=== PATIENT | female | born 1960 | race Caucasian/White ===

== ENCOUNTER → 2023-01-12 | Outpatient (CLI) | payer MEDICARE ==
[2023-01-12 12:22] VITALS: BP 151/83; PULSE 75; RESP 16; TEMP 98.1
--- NOTE | 2023-01-12 14:22 | P.PAINPG ---
PQRS Measure Charge Sheet Comment: HISTORY OF PRESENT ILLNESS: A 62 yr old female as a referral from Dr Chavez presents today w severe and chronic LBP x 2 yrs secondary to DDD, spondylosis and facet arthropathy without myelopathy for evaluation. Pt states pain level is provoked at 9 /10 in intensity, constant, localized in the mid to lower lumbar spine, sharp in character w shooting pain towards the BL feet. Pain is provoked by over activity. Pain is alleviated by PT x 6 wks in Sep 2022, heat, ice, medications ([place] 10/3225mg #90, Neurontin), topical, use of TENS unit, lumbar support brace, use of a cane for ambulatory assistance, repositioning and rest. Oswestry axial pain score at 27. PMH: OA, HTN, GERD, Hyperlipidemia, Seasonal Allergies, Anxiety, TMJ PSH: Tubal Ligation (1985), Partial Hysterectomy (1990), Bladder Suspension (1990), Cholecystectomy (2007), Appendectomy (2009), L Shoulder Surgery (2002), Cystocoele (2018) SH: +Tobacco use, No ETOH abuse, No illicit drug use FH: Daughter- Bipolar Disorder. Son- HTN All: See list Meds: See list REVIEW OF ORGAN SYSTEMS: CONSTITUTIONAL: No fevers or chills. No recent weight loss. NEUROLOGICAL: + numbness and tingling along the distal extremities. No seizure disorders or headaches. MUSCULOSKELETAL: + pain PSYCHIATRIC: Denies current depression or suicidal thoughts. Physical Examinations : Constitutional : Cooperative , not in acute distress . Neurologic : Cranial nerve II to XII intact. No focal neurological deficits. Psychiatric : alert & oriented x 3. Matching mood & appropriate affect. Judgment & insight intact. Musculoskeletal : Cervical Spine Motor strength in the deltoid and biceps: Normal right side. Normal Left side Motor strength biceps and the wrist extensors: Normal right side . Normal left side Motor strength in the triceps muscle: Normal right side. Normal left side Deep tendon reflexes: Normal at the biceps. Normal at Brachioradialis. Normal at triceps Vertebral body tenderness to deep palpation over Cervical facet loading test: positive bilaterally Spurling test: positive bilaterally Neck distraction test: positive bilaterally Camron sign: positive bilaterally Lumbar spine Motor strength lower extremities ,thigh and legs 5/5 Right side , 5/5 Left side Deep tendon reflexes : Normal Knee Jerk. Normal Ankle Jerk Vertebral body tenderness over L5 De Luna Test positive Lumbar facet Loading Test: positive Right / positive Left Range of motion of the lumbar spine Flexion 30 degrees, extension 10 degrees Straight Leg Raise test: Left/ Right positive at 30 degrees Shameka test: positive right / positive left. Severe tenderness over the Sacroiliac joint on the Right / Left sides Gaenslen test: positive bilaterally Seated flexion test: positive bilaterally. Sacral spine : Severe tenderness over the Sacroiliac joint: right side / left side Range of motion: Flexion of the lumbar spine <60 degrees Range of motion: Extension of the lumbar spine <20 degrees Gaenslen's Test positive Parrish's Test positive Shameka test: positive right side / left side Thigh Thrust Test Sacral Thrust Test Imaging: MRI noncontrast of the lumbar spine from 06/05/22 reviewed Assessment/ Plan : Lumbar DDD Recommendation of DOYLE L5-S1 #1. May need a series of injections for optimal pain relief. Risks, benefits of procedure discussed and patient verbalized understanding. Admits to anti- coagulant use or medical history of diabetes. Protocol for discontinuation/ continuation of medications mya procedure discussed. Minimal anesthesia provided, if clinically indicated, consisting of Versed and Fentanyl. [place] 10/325mg #90 w 1 RF. Use, side effects, adverse reactions and safe storage discussed. Opiate/ narcotic agreement signed 01/12/23 Pt acknowledged understanding. All questions answered. I have spent greater than 30 minutes on patient care today. Dr Michel was available by phone for the evaluation of this patient. The time was used to review the medical records including relevant urine studies and Prescription history (MAPs), review of the available imaging, evaluation and examination of the patient, coordination of care with the medical staff and if applicable referring physicians, as well as creation of the medical record Controlled Substance Measures - Controlled Substance Measures Is patient prescribed a controlled substance at discharge?: Yes When asked, does pt state using other controlled substances?: Yes If prescribed controlled substance>3 days was MAPS reviewed?: Yes If Rx opioid, was Start Talking consent form obtained?: Yes Was information provided regarding opioid addiction?: Yes
== END ==
LOC: PNWHC3 10:35
PROVIDERS: ATTEND Specialist
DX: G89.4 Chronic pain syndrome (principal); M54.42 Lumbago with sciatica, left side; M51.36 Other intervertebral disc degeneration, lumbar region; M19.90 Unspecified osteoarthritis, unspecified site; K21.9 Gastro-esophageal reflux disease without esophagitis; E78.5 Hyperlipidemia, unspecified; F41.9 Anxiety disorder, unspecified; M26.609 Unspecified temporomandibular joint disorder, unspecified side; F17.200 Nicotine dependence, unspecified, uncomplicated; Z88.8 Allergy status to other drugs, medicaments and biological substances
CPT/HCPCS: 99202

== ENCOUNTER → 2023-03-30 | Outpatient (CLI) | payer MEDICARE ==
[2023-03-30 11:08] VITALS: BP 120/76; PULSE 65; RESP 16
--- NOTE | 2023-03-30 14:00 | P.PAINPG ---
PQRS Measure Charge Sheet Comment: HISTORY OF PRESENT ILLNESS: A 62 yr old female as a referral from Dr Chavez presents today w severe and chronic LBP x 2 yrs secondary to DDD, spondylosis and facet arthropathy without myelopathy for evaluation. She was recommended to have an DOYLE L5-S1 in her Dec 2022 visit along w narcotic medications, but pt has not followed through w DOYLE. She did not return calls confirming her DOYLE appt. Pt states pain level is provoked at 9 /10 in intensity, constant, localized in the mid to lower lumbar spine, predominantly axial, sharp in character w occasional shooting pain towards the BL feet. Pain is provoked by over activity. Pain is alleviated by PT x 6 wks in Sep 2022, heat, ice, medications ([place] 10/325mg #90, Neurontin), topical, use of TENS unit, lumbar support brace, use of a cane for ambulatory assistance, repositioning and rest. Oswestry axial pain score at 27. PMH: OA, HTN, GERD, Hyperlipidemia, Seasonal Allergies, Anxiety, TMJ PSH: Tubal Ligation (1985), Partial Hysterectomy (1990), Bladder Suspension (1990), Cholecystectomy (2007), Appendectomy (2009), L Shoulder Surgery (2002), Cystocoele (2018) SH: +Tobacco use, No ETOH abuse, No illicit drug use FH: Daughter- Bipolar Disorder. Son- HTN All: See list Meds: See list REVIEW OF ORGAN SYSTEMS: CONSTITUTIONAL: No fevers or chills. No recent weight loss. NEUROLOGICAL: + numbness and tingling along the distal extremities. No seizure disorders or headaches. MUSCULOSKELETAL: + pain PSYCHIATRIC: Denies current depression or suicidal thoughts. Physical Examinations : Constitutional : Cooperative , not in acute distress . Neurologic : Cranial nerve II to XII intact. No focal neurological deficits. Psychiatric : alert & oriented x 3. Matching mood & appropriate affect. Judgment & insight intact. Musculoskeletal : Cervical Spine Motor strength in the deltoid and biceps: Normal right side. Normal Left side Motor strength biceps and the wrist extensors: Normal right side . Normal left side Motor strength in the triceps muscle: Normal right side. Normal left side Deep tendon reflexes: Normal at the biceps. Normal at Brachioradialis. Normal at triceps Vertebral body tenderness to deep palpation over Cervical facet loading test: positive bilaterally Spurling test: positive bilaterally Neck distraction test: positive bilaterally Camron sign: positive bilaterally Lumbar spine Motor strength lower extremities ,thigh and legs 5/5 Right side , 5/5 Left side Deep tendon reflexes : Normal Knee Jerk. Normal Ankle Jerk Vertebral body tenderness over L5 De Luna Test positive Lumbar facet Loading Test: positive Right / positive Left Range of motion of the lumbar spine Flexion 30 degrees, extension 10 degrees Straight Leg Raise test: Left/ Right positive at 30 degrees Shameka test: positive right / positive left. Severe tenderness over the Sacroiliac joint on the Right / Left sides Gaenslen test: positive bilaterally Seated flexion test: positive bilaterally. Sacral spine : Severe tenderness over the Sacroiliac joint: right side / left side Range of motion: Flexion of the lumbar spine <60 degrees Range of motion: Extension of the lumbar spine <20 degrees Gaenslen's Test positive Parrish's Test positive Shameka test: positive right side / left side Thigh Thrust Test Sacral Thrust Test Imaging: MRI noncontrast of the lumbar spine from 06/05/22 reviewed Assessment/ Plan : Lumbar DDD Recommendation of DOYLE L5-S1 #1 scheduled 04/07/23 at 9:30 am. Pt notified and paperwork provided. May need a series of injections for optimal pain relief. Risks, benefits of procedure discussed and patient verbalized understanding. Admits to anti- coagulant use or medical history of diabetes. Protocol for discontinuation/ continuation of medications mya procedure discussed. [place] 10/325mg #90. Use, side effects, adverse reactions and safe storage discussed. Opiate/ narcotic agreement signed 01/12/23. UDS collected 03/30/23. Pt acknowledged understanding. All questions answered. I have spent greater than 30 minutes on patient care today. Dr Michel was available by phone for the evaluation of this patient. The time was used to review the medical records including relevant urine studies and Prescription history (MAPs), review of the available imaging, evaluation and examination of the patient, coordination of care with the medical staff and if applicable referring physicians, as well as creation of the medical record Home Medications: Ambulatory Orders HYDROcodone/APAP 10-325MG [[place] 10-325] 1 tab PO Q8HR PRN 30 Days #90 tab 01/12/23 HYDROcodone/APAP 10-325MG [[place] 10-325] 1 tab PO Q8HR PRN 30 Days #90 tab 10/23/23 Controlled Substance Measures - Controlled Substance Measures Is patient prescribed a controlled substance at discharge?: Yes When asked, does pt state using other controlled substances?: Yes If prescribed controlled substance>3 days was MAPS reviewed?: Yes
== END ==
LOC: PNWHC3 10:26
PROVIDERS: ATTEND Specialist
DX: M51.36 Other intervertebral disc degeneration, lumbar region (principal); Z88.3 Allergy status to other anti-infective agents
CPT/HCPCS: 80307; G0463; 99212

== ENCOUNTER → 2023-05-14 | Outpatient (CLI) | payer MEDICARE ==
[2023-05-14 12:12] VITALS: BP 137/72; PULSE 67; RESP 16; TEMP 98.1
--- NOTE | 2023-05-14 14:39 | P.PAINPG ---
PQRS Measure Charge Sheet Comment: HISTORY OF PRESENT ILLNESS: A 62 yr old female presents today w severe and chronic LBP x 2 yrs secondary to DDD, spondylosis and facet arthropathy without myelopathy for evaluation. She was recommended to have an DOYLE L5-S1 in her Dec 2022 visit along w narcotic medications, but pt has not followed through w DOYLE by cancelling/No-Show for at least 4 OR appts within the Mar-Apr 2023 period. Previously she did not return calls confirming her [facility]YLE appt which also caused disruptions in OR scheduling. Pt states pain level is provoked at 9 /10 in intensity, constant, localized in the mid to lower lumbar spine, predominantly axial, sharp in character w occasional shooting pain towards the BL feet. Pain is provoked by over activity. Pain is alleviated by PT x 6 wks in Sep 2022, heat, ice, medications ([place] 10/325mg #90, Neurontin), topical, use of TENS unit, lumbar support brace, use of a cane for ambulatory assistance, repositioning and rest. Oswestry axial pain score at 27. Interventional procedures include : NONE. Pt cancelled/no-showed [facility] appt on 04/07/23, 04/14/23, 04/16/23 for "transportation issues" and 05/01/23 appt for "illness" yet pt appears min ahead of schedule for medication refill appt. This has created a huge disruption with the OR scheduling dept. She has a narcotic agreement w Dr Kendrick for Gabapentin and Alprazolam and has been instructed to follow up Dr Kendrick for treatment options. Medications include [place] 10/325mg #90, Neurontin REVIEW OF ORGAN SYSTEMS: CONSTITUTIONAL: No fevers or chills. No recent weight loss. NEUROLOGICAL: + numbness and tingling along the distal extremities. No seizure disorders or headaches. MUSCULOSKELETAL: + pain PSYCHIATRIC: Denies current depression or suicidal thoughts. Physical Examinations : Constitutional : Cooperative , not in acute distress . Neurologic : Cranial nerve II to XII intact. No focal neurological deficits. Psychiatric : alert & oriented x 3. Matching mood & appropriate affect. Judgment & insight intact. Musculoskeletal : Cervical Spine Motor strength in the deltoid and biceps: Normal right side. Normal Left side Motor strength biceps and the wrist extensors: Normal right side . Normal left side Motor strength in the triceps muscle: Normal right side. Normal left side Deep tendon reflexes: Normal at the biceps. Normal at Brachioradialis. Normal at triceps Vertebral body tenderness to deep palpation over Cervical facet loading test: positive bilaterally Spurling test: positive bilaterally Neck distraction test: positive bilaterally Camron sign: positive bilaterally Lumbar spine Motor strength lower extremities ,thigh and legs 5/5 Right side , 5/5 Left side Deep tendon reflexes : Normal Knee Jerk. Normal Ankle Jerk Vertebral body tenderness over L5 De Luna Test positive Lumbar facet Loading Test: positive Right / positive Left Range of motion of the lumbar spine Flexion 30 degrees, extension 10 degrees Straight Leg Raise test: Left/ Right positive at 30 degrees Shameka test: positive right / positive left. Severe tenderness over the Sacroiliac joint on the Right / Left sides Gaenslen test: positive bilaterally Seated flexion test: positive bilaterally. Sacral spine : Severe tenderness over the Sacroiliac joint: right side / left side Range of motion: Flexion of the lumbar spine <60 degrees Range of motion: Extension of the lumbar spine <20 degrees Gaenslen's Test positive Parrish's Test positive Shameka test: positive right side / left side Thigh Thrust Test Sacral Thrust Test Imaging: MRI noncontrast of the lumbar spine from 06/05/22 reviewed Assessment/ Plan : Lumbar DDD One month fill and discharge paperwork filled out for written notification to pt and Dr Kendrick. Discharged from clinic for multiple missed appts, not following treatment guidelines and disruption of practice. [place] 10/325mg #90. Use, side effects, adverse reactions and safe storage discussed. Opiate/ narcotic agreement signed 01/12/23. UDS fr 03/30/23 reviewed and consistent. Pt acknowledged understanding. All questions answered. I have spent greater than 30 minutes on patient care today. Dr Michel was available by phone for the evaluation of this patient. The time was used to review the medical records including relevant urine studies and Prescription history (MAPs), review of the available imaging, evaluation and examination of the patient, coordination of care with the medical staff and if applicable referring physicians, as well as creation of the medical record PQRS Narrative: Hx Alcohol Use (MH) No Home Medications: Ambulatory Orders HYDROcodone/APAP 10-325MG [[place] 10-325] 1 tab PO Q8HR PRN 30 Days #90 tab 03/30/23 ALPRAZolam [Xanax] 0.5 mg PO BID 04/13/23 Aspirin EC [Ecotrin] 325 mg PO DAILY 04/13/23 Atorvastatin Calcium 10 mg PO DAILY 04/13/23 Cetirizine HCl 10 mg PO DAILY 04/13/23 Cyclobenzaprine HCl 10 mg PO TID 04/13/23 Desvenlafaxine Succinate [Desvenlafaxine Succinate ER] 50 mg PO DAILY 04/13/23 Esomeprazole Magnesium [NexIUM] 40 mg PO DAILY 04/13/23 Fluticasone Nasal [place] [Flonase Nasal [place]] 2 spray EA NOSTRIL HS 04/13/23 Metoprolol Succinate (ER) [Toprol Xl] 200 mg PO DAILY 04/13/23 Pregabalin 150 mg PO BID 04/13/23 hydrALAZINE HCL 10 mg PO BID 04/13/23 hydroCHLOROthiazide [Hydrochlorothiazide] 12.5 mg PO DAILY 04/13/23 lamoTRIgine [Lamotrigine] 400 mg PO HS 04/13/23 lisinopriL [Zestril] 20 mg PO DAILY 04/13/23 metFORMIN HCL 500 mg PO DAILY 04/13/23 Controlled Substance Measures - Controlled Substance Measures Is patient prescribed a controlled substance at discharge?: Yes When asked, does pt state using other controlled substances?: Yes If prescribed controlled substance>3 days was MAPS reviewed?: Yes
== END ==
LOC: PNWHC3 10:47
PROVIDERS: ATTEND Specialist
DX: M51.36 Other intervertebral disc degeneration, lumbar region (principal); Z79.82 Long term (current) use of aspirin; Z88.8 Allergy status to other drugs, medicaments and biological substances
CPT/HCPCS: 99211